=== PATIENT | male | born 1935 | race Caucasian/White ===

== ENCOUNTER 2017-04-21 16:00 | Emergency (ER) | payer OTHER ==
[~2017-04-21] VITALS: Wt 84.8 kg
[~2017-04-21 16:00] MED LIST: CIPROFLOXACIN250 MG PO; COUMADIN5 M2 PO; COUMADIN5 MG PO; CYCLOBENZAPRINE10 MG PO; Coumadin2 MG PO; DIABETA5 MG PO; GABAPENTIN400 MG PO; GLIPIZIDE5 MG PO; HUMULIN R100 U/ML SQ; Lovenox60 MG/0.6 SC; NOVOLIN N100 U/ML SC; TAMSULOSIN HYD0.4 MG PO; TRAMADOL50 MG PO; [UNRECOGNIZED DRUG - OTHER] PO
[2017-04-21 16:37] LABS: BASO % 0.2 % (0.0-1.0); EOS % 0.1 % (1.0-4.0); HEMATOCRIT 40.1 % (42.0-52.0); HEMOGLOBIN 13.7 g/dl (14.0-18.0); LYMPH # 2.4 10*3/uL (1.3-4.4); LYMPH % 19.2 % (27.0-41.0); MEAN CELL VOLUME 93.9 fl (80.0-94.0); MEAN CORPUSCULAR HGB 32.1 pg (27.0-31.0); MEAN CORPUSCULAR HGB CONC 34.2 g/dl (33.0-37.0); MONO # 1.1 10*3/uL (0.1-1.0); MONO % 8.5 % (3.0-9.0); NEUT % 71.6 % (47.0-73.0); PLATELET COUNT AUTOMATED 165 10*3/uL (130-400); RED BLOOD COUNT 4.27 10*6/uL (4.50-5.90); RED CELL DISTRI WIDTH 13.1 % (0-14.5); WHITE BLOOD COUNT 12.5 10*3/uL (4.8-10.8)
[2017-04-21 16:45] LABS: INTERNATIONAL NORM RATIO 1.7 (2.0-3.5)
[2017-04-21 16:51] LABS: ALBUMIN 3.8 gm/dl (3.1-4.5); CREATININE 1.71 mg/dL (0.70-1.30); MAGNESIUM 2.2 mg/dL (1.5-2.1); POTASSIUM 4.3 mmol/L (3.5-5.1); TOTAL PROTEIN 7.8 gm/dL (6.4-8.2)
[2017-04-21 17:00] LABS: BILIRUBIN NEGATIVE (NEGATIVE); BLOOD 3+ (NEGATIVE); CLARITY SL CLOUDY (CLEAR); COLOR YELLOW (YELLOW); GLUCOSE 3+ (NEGATIVE); KETONE NEGATIVE (NEGATIVE); LEUKO ESTERASE NEGATIVE (NEGATIVE); NITRITE NEGATIVE (NEGATIVE); PH 5.5 (5.0-9.0); SPECIFIC GRAVITY 1.015 (1.005-1.030); UROBILINOGEN 0.2 E.U./dl (0.2-1.0)
[2017-04-21 17:07] LABS: BACTERIA TRACE; EPITHELIAL CELLS 0-2; RBC TNTC rbc/hpf (0-2); WBC 0-2 wbc/hpf (0-5)
[2017-04-21] MEDS ORDERED: CLINDAMYCIN HC300 MG PO (18:08)
[2017-04-21] MEDS ORDERED: CIPRO250 MG PO (18:08)
== END 2017-04-21 18:27 | disposition home or self-care (01) ==
LOC: ED 16:00
PROVIDERS: Emergency Medicine
DX: S91.332A Puncture wound without foreign body, left foot, initial encounter (principal); R31.9 Hematuria, unspecified; D72.829 Elevated white blood cell count, unspecified; R68.83 Chills (without fever); R42 Dizziness and giddiness; R79.1 Abnormal coagulation profile; I12.9 Hypertensive chronic kidney disease with stage 1 through stage 4 chronic kidney disease, or unspecified chronic kidney disease; E11.22 Type 2 diabetes mellitus with diabetic chronic kidney disease; N18.3 Chronic kidney disease, stage 3 (moderate); Z88.0 Allergy status to penicillin; Z79.899 Other long term (current) drug therapy; Z79.4 Long term (current) use of insulin; Z86.718 Personal history of other venous thrombosis and embolism; Z86.73 Personal history of transient ischemic attack (TIA), and cerebral infarction without residual deficits

== ENCOUNTER 2017-06-09 11:32 | Inpatient (IN) | payer OTHER ==
[~2017-06-09] VITALS: Ht 180.3 cm; Wt 83.9 kg
[~2017-06-09 11:32] MED LIST changes: +CIPRO250 MG PO; +CLINDAMYCIN HC300 MG PO
[2017-06-09 11:41] VITALS: BP 123/56
[2017-06-09 12:12] LABS: BASO % 0.6 % (0.0-1.0); HEMATOCRIT 37.9 % (42.0-52.0); LYMPH % 14.9 % (27.0-41.0); MEAN CELL VOLUME 91.3 fl (80.0-94.0); MEAN CORPUSCULAR HGB 31.3 pg (27.0-31.0); MEAN CORPUSCULAR HGB CONC 34.3 g/dl (33.0-37.0); MEAN PLATELET VOLUME 8.7 fl (9.6-12.3); MONO # 0.8 10*3/uL (0.1-1.0); MONO % 12.2 % (3.0-9.0); NEUT # 4.8 10*3/uL (2.3-7.9); PLATELET COUNT AUTOMATED 167 10*3/uL (130-400); RED BLOOD COUNT 4.15 10*6/uL (4.50-5.90); RED CELL DISTRI WIDTH 13.2 % (0-14.5); WHITE BLOOD COUNT 6.6 10*3/uL (4.8-10.8)
--- NOTE | 2017-06-09 12:17 | NUR ---
PT LA 2.1, DR CATALINA MELO.
[2017-06-09 12:33] LABS: ALBUMIN 3.3 gm/dl (3.1-4.5); ALKALINE PHOSPHATASE 106 U/L (45-117); BUN 28 mg/dl (7-24); CHLORIDE 100 mmol/L (98-107); CREATININE 1.99 mg/dL (0.70-1.30); POTASSIUM 4.4 mmol/L (3.5-5.1); SGOT/AST 21 IU/L (3-35); SGPT/ALT 20 U/L (12-78); SODIUM 135 mmol/L (136-145); TOTAL PROTEIN 7.7 gm/dL (6.4-8.2)
[2017-06-09 12:38] LABS: TROPONIN I < 0.015 ng/ml (<0.045)
[2017-06-09 13:11] VITALS: BP 126/66
[2017-06-09 13:21] LABS: BILIRUBIN NEGATIVE (NEGATIVE); BLOOD TRACE-INTACT (NEGATIVE); CLARITY SL CLOUDY (CLEAR); COLOR YELLOW (YELLOW); GLUCOSE TRACE (NEGATIVE); KETONE NEGATIVE (NEGATIVE); LEUKO ESTERASE NEGATIVE (NEGATIVE); NITRITE NEGATIVE (NEGATIVE); PH 5.5 (5.0-9.0); UROBILINOGEN 0.2 E.U./dl (0.2-1.0)
[2017-06-09 13:34] LABS: BACTERIA 1+; CALCIUM OXALATE CRYSTALS TRACE; MUCOUS 2+
[2017-06-09 14:43] VITALS: BP 128/63
--- NOTE | 2017-06-09 14:46 | NUR ---
ATTEMPTED REPORT,NOT ABLE TO GIVE AT THIS TIME. NASEEM MORGAN
[2017-06-09 15:29] VITALS: BP 125/66
--- NOTE | 2017-06-09 15:35 | NUR ---
A 81, admitted to 5E, under the services of DIONNE Guerrero DO with a diagnosis of DIZZY,ORTHOSTATIC HYPOTENSION, NEAR SYNCOPE,DEHYDRATION. Chief complaint is DIZZY FOR THE PAST 3 DAYS. STATES CHECKED HIS BP AT HOME AND THE TOP NUMBER WAS IN THE 70'S. VERY WEAK. Patient arrived via stretcher from ER. Monitor applied. Initial assessment completed. Vital signs taken and recorded. DIONNE GUERRERO DO notified of admission to the unit. Orders received. See assessment for past medical history, medications and allergies. Patient and/or family oriented to unit. [address] visitation policy reviewed. Clothing/patient valuable form completed. LINDA VICTOR
--- NOTE | 2017-06-09 15:50 | NUR ---
PATIENT REFUSED WOUND PHOTOS
[2017-06-09 16:20] VITALS: BP 138/74
--- NOTE | 2017-06-09 16:20 | NUR ---
DR DUENAS AND DR CASEY AWARE OF THE PATIENT'S WOUND WITH NO ORDERS GIVEN
[2017-06-09] MEDS ORDERED: LANTUS SOL100 UNIT/1 SQ (16:42)
[2017-06-09] MEDS ORDERED: NIACIN500 M5 PO (16:42)
[2017-06-09] MEDS ORDERED: NOVOLOG FL100 UNIT/1 SQ (16:43)
[2017-06-09] MEDS ORDERED: COUMADIN5 M2 PO (16:43)
[2017-06-09] MEDS ORDERED: Coumadin2.5 MG PO (16:44)
--- NOTE | 2017-06-09 16:45 | NUR ---
VERIFIED MEDS WITH PATIENT'S . UNABLE TO VERIFY WITH [facility]. DR DUENAS IS AWARE.
--- NOTE | 2017-06-09 17:02 | NUR ---
CALLED [facility], NURSING MAINS[employer]ING STRIP INSPECTOR. ADVISED THAT PATIENT HAD A WOUND BUT I DID NOT BELIEVE IT IS A PRESSURE ULCER. SHE ADVISED SHE DID NOT NEED TO SEE IT SINCE IT IS NOT A PRESSURE ULCER.
[2017-06-09 18:01] LABS: INTERNATIONAL NORM RATIO 1.7 (2.0-3.5)
[2017-06-09 20:00] VITALS: BP 154/69
--- NOTE | 2017-06-09 21:00 | NUR ---
SLEEPING, AWAKENS EASILY. RESPIRATIONS EASY. LUNGS DIMINISHED WITH FAINT WHEEZES. PULSE OX 97% RA. DRY NON-PROD COUGH. TRACE BLE EDEMA. IV FLUIDS INFUSING PER ORDER. CALL LIGHT WITHIN REACH. NO VOICED COMPLAINTS. BED ALARM MAINTAINED FOR SAFETY
--- NOTE | 2017-06-09 22:30 | NUR ---
ORTHOS CHECKED: SUPINE 151/63 81 SITTING 143/65 85 STANDING 129/56 103 PATIENT ASYMTPOMATIC
[2017-06-10] VITALS: BP 148/65
--- NOTE | 2017-06-10 02:41 | NUR ---
PATIENT RESTING IN BED WITH EYES CLOSED. RESPIRATION EASY AND REGULAR. NO SIGNS OR SYMPTOMS OF DISTRESS NOTED. AROUSES TO VERBAL STIMULI. WILL CONTINUE TO MONITOR. CALL LIGHT IN REACH.
[2017-06-10 06:13] LABS: BASO % 0.6 % (0.0-1.0); EOS % 0.4 % (1.0-4.0); HEMATOCRIT 33.6 % (42.0-52.0); HEMOGLOBIN 11.2 g/dl (14.0-18.0); LYMPH # 1.8 10*3/uL (1.3-4.4); LYMPH % 35.3 % (27.0-41.0); MEAN CELL VOLUME 90.8 fl (80.0-94.0); MEAN CORPUSCULAR HGB 30.3 pg (27.0-31.0); MEAN CORPUSCULAR HGB CONC 33.3 g/dl (33.0-37.0); MEAN PLATELET VOLUME 9.2 fl (9.6-12.3); MONO # 0.9 10*3/uL (0.1-1.0); MONO % 17.3 % (3.0-9.0); NEUT # 2.4 10*3/uL (2.3-7.9); PLATELET COUNT AUTOMATED 168 10*3/uL (130-400); WHITE BLOOD COUNT 5.1 10*3/uL (4.8-10.8)
[2017-06-10 06:26] LABS: ACT PARTIAL THROMBO TIME 31.5 SECONDS (20.8-31.5); INTERNATIONAL NORM RATIO 1.6 (2.0-3.5)
[2017-06-10 06:43] LABS: ALBUMIN 2.7 gm/dl (3.1-4.5); ALKALINE PHOSPHATASE 87 U/L (45-117); BUN 22 mg/dl (7-24); CHLORIDE 106 mmol/L (98-107); CHOLESTEROL 146 mg/dL (<200); CREATININE 1.37 mg/dL (0.70-1.30); FREE T4 1.25 ng/dl (0.76-1.46); HDL CHOLESTEROL 33 mg/dl (40-60); LDL CHOLESTEROL 83 mg/dL (9-159); MAGNESIUM 1.9 mg/dL (1.5-2.1); PHOSPHOROUS 2.6 mg/dL (2.5-4.9); POTASSIUM 3.9 mmol/L (3.5-5.1); SGOT/AST 21 IU/L (3-35); SGPT/ALT 18 U/L (12-78); SODIUM 139 mmol/L (136-145); TOTAL PROTEIN 6.6 gm/dL (6.4-8.2); TRIGLYCERIDES 148 mg/dl (<150); VLDL CHOLESTEROL 30 mg/dL (6-40)
[2017-06-10 07:40] LABS: VITAMIN D, 25-HYDROXY 18.6 ng/mL (30-100)
[2017-06-10 08:00] VITALS: BP 158/82
--- NOTE | 2017-06-10 08:24 | NUR ---
Patient has dry scab on plantar surface of left foot measuring 0.4cm x 0.6cm x <0.1cm. Patient states he stepped on a nail approximately 2 months ago. Patient stated he came to [facility] ER 04/21/17. Per radiology report on 04/21/17 no foreign body or fracture. Patient states this area has been closed and not draining for 1 month. Wound care recommendations were discussed with the patient and agreed to moisturizing cream to the dry scab area.
--- NOTE | 2017-06-10 10:39 | NUR ---
FAX SENT TO [facility] TO REQUEST MED LIST
[2017-06-10 13:00] VITALS: BP 119/78; BP 147/76
--- NOTE | 2017-06-10 16:00 | NUR ---
DISCHARGED AT THIS TIME. IV REMOVED AND PRESSURE DRESSING APPLIED. HEART MONITOR RETURNED TO FLOOR. VERBALIZED UNDERSTANDING OF DISCHARGE INSTRUCTIONS.
== END 2017-06-10 16:00 | disposition home or self-care (01) | DRG 682 ==
LOC: ED 11:32 → EDHOLD 13:35 → 5E 14:24
PROVIDERS: Hospitalist; Student in an Organized Health Care Education/Training Program; ADMIT Emergency Medicine
DX: N17.0 Acute kidney failure with tubular necrosis (principal); I26.99 Other pulmonary embolism without acute cor pulmonale; E11.22 Type 2 diabetes mellitus with diabetic chronic kidney disease; E86.0 Dehydration; I95.1 Orthostatic hypotension; R79.1 Abnormal coagulation profile; N18.3 Chronic kidney disease, stage 3 (moderate); T45.515A Adverse effect of anticoagulants, initial encounter; I12.9 Hypertensive chronic kidney disease with stage 1 through stage 4 chronic kidney disease, or unspecified chronic kidney disease; Z79.4 Long term (current) use of insulin; Z88.0 Allergy status to penicillin; Z91.048 Other nonmedicinal substance allergy status; Z79.01 Long term (current) use of anticoagulants; Z86.718 Personal history of other venous thrombosis and embolism; Z86.73 Personal history of transient ischemic attack (TIA), and cerebral infarction without residual deficits; Z85.22 Personal history of malignant neoplasm of nasal cavities, middle ear, and accessory sinuses; Z82.49 Family history of ischemic heart disease and other diseases of the circulatory system; Z83.3 Family history of diabetes mellitus

== ENCOUNTER 2019-10-17 12:34 | Emergency (ER) | payer OTHER ==
[~2019-10-17] VITALS: Ht 180.3 cm; Wt 85.3 kg
[~2019-10-17 12:34] MED LIST changes: +Coumadin2.5 MG PO; +LANTUS SOL100 UNIT/1 SQ; +NIACIN500 M5 PO; +NOVOLOG FL100 UNIT/1 SQ
[2019-10-17 13:19] LABS: BASO # 0.1 10*3/uL (0.0-0.1); BASO % 0.7 % (0.0-1.0); EOS # 0.1 10*3/uL (0.0-0.4); EOS % 1.2 % (1.0-4.0); HEMATOCRIT 35.7 % (42.0-52.0); HEMOGLOBIN 11.4 g/dl (14.0-18.0); LYMPH # 2.6 10*3/uL (1.3-4.4); LYMPH % 27.1 % (27.0-41.0); MEAN CELL VOLUME 95.5 fl (80.0-94.0); MEAN CORPUSCULAR HGB 30.5 pg (27.0-31.0); MEAN CORPUSCULAR HGB CONC 31.9 g/dl (33.0-37.0); MEAN PLATELET VOLUME 8.6 fl (9.6-12.3); MONO # 0.8 10*3/uL (0.1-1.0); MONO % 8.4 % (3.0-9.0); PLATELET COUNT AUTOMATED 230 10*3/uL (130-400); RED BLOOD COUNT 3.74 10*6/uL (4.50-5.90); RED CELL DISTRI WIDTH 14.3 % (0-14.5); WHITE BLOOD COUNT 9.6 10*3/uL (4.8-10.8)
[2019-10-17 13:30] LABS: ACT PARTIAL THROMBO TIME 40.6 SECONDS (20.0-32.1); INTERNATIONAL NORM RATIO 3.4 (2.0-3.5)
[2019-10-17 13:37] LABS: ALBUMIN 3.4 gm/dl (3.1-4.5); ALKALINE PHOSPHATASE 127 U/L (45-117); BUN 24 mg/dl (7-24); CHLORIDE 108 mmol/L (98-107); CREATININE 1.92 mg/dL (0.70-1.30); POTASSIUM 5.2 mmol/L (3.5-5.1); SGOT/AST 19 IU/L (3-35); SGPT/ALT 31 U/L (12-78); SODIUM 140 mmol/L (136-145); TOTAL PROTEIN 7.7 gm/dL (6.4-8.2)
[2019-10-17 13:38] LABS: TROPONIN I < 0.015 ng/ml (<0.045)
== END 2019-10-17 15:39 | disposition home or self-care (01) ==
LOC: ED 12:34
PROVIDERS: Emergency Medicine
DX: R55 Syncope and collapse (principal); E11.22 Type 2 diabetes mellitus with diabetic chronic kidney disease; I12.9 Hypertensive chronic kidney disease with stage 1 through stage 4 chronic kidney disease, or unspecified chronic kidney disease; N18.3 Chronic kidney disease, stage 3 (moderate); Z91.048 Other nonmedicinal substance allergy status; Z53.29 Procedure and treatment not carried out because of patient's decision for other reasons; Z88.0 Allergy status to penicillin; Z79.4 Long term (current) use of insulin; Z79.01 Long term (current) use of anticoagulants; Z86.718 Personal history of other venous thrombosis and embolism

== ENCOUNTER → 2019-10-21 | Outpatient (CLI) | payer OTHER | END | disposition home or self-care (01) | LOC: RESCLI 01:17 | DX: R55 Syncope and collapse (principal); L30.9 Dermatitis, unspecified; Z79.4 Long term (current) use of insulin; Z89.429 Acquired absence of other toe(s), unspecified side; Z87.39 Personal history of other diseases of the musculoskeletal system and connective tissue; Z86.718 Personal history of other venous thrombosis and embolism; Z79.84 Long term (current) use of oral hypoglycemic drugs; Z79.899 Other long term (current) drug therapy ==

== ENCOUNTER → 2020-01-14 | Outpatient (CLI) | payer OTHER ==
[2020-01-14 11:45] LABS: INTERNATIONAL NORM RATIO 2.5 (2.0-3.5)
== END | disposition home or self-care (01) ==
LOC: LAB 10:58
PROVIDERS: Specialist
DX: Z79.01 Long term (current) use of anticoagulants (principal)